=== PATIENT | female | born 1975 | race Caucasian/White ===

== ENCOUNTER → 2016-12-10 | Outpatient (CLI) | payer OTHER ==
--- NOTE | 2016-12-10 14:05 | DI ---
MRI LUMBAR SPINE SCAN WITHOUT IV CONTRAST, 12/10/2016 10:58 AM: Clinical History: Low back pain. Sciatica. Previous Exam: 05/08/2016. Technique: Sagittal and axial T2 weighted; sagittal T1 weighted and T2 STIR; and axial PD. The vertebral bodies are of normal height and size. The disc spaces are of normal height and signal p attern. The cord terminates at T12. The conus medullaris is normal. The T10-11 and T11-12 disc spaces have very minimally bulging but not herniated discs without canal or neural foraminal stenosis. The disc spaces from T12-L1 through L4-5 are normal. L5-S1 has a central bulging but not herniated disc w ithout canal or neural foraminal stenosis. Readin. There are minimally bulging but not herniated discs without canal or neural foraminal stenosis at T10-11, T11-12, and L5-S1. 2. The disc spaces from T12-L1 through L4-5 are normal.
== END ==
LOC: MRI 10:53
PROVIDERS: ATTEND Orthopaedic Surgery
DX: M54.32 Sciatica, left side (principal); M47.814 Spondylosis without myelopathy or radiculopathy, thoracic region; M47.817 Spondylosis without myelopathy or radiculopathy, lumbosacral region
CPT/HCPCS: 72148